=== PATIENT | female | born 2000 | race Caucasian/White ===

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

== ENCOUNTER 2019-11-10 09:57 | Inpatient (IN) | payer MEDICAID ==
[~2019-11-10] VITALS: Ht 165.1 cm; Wt 65.9 kg
--- NOTE | 2019-11-10 10:08 | NUR ---
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 SX: BRADYCARDIA, HYPOTENSION. TX INCLUDE: ZERO CHARCOAL IF PATIENT IS UNABLE TO MAINTAIN HER AIRWAY, ATROPINE PRN FOR BRADYCARDIA, FLUIDS FOR HYPOTENSION, OBSERVE FOR 6 HOURS AND ADMIT FOR PERSISTENT SX, NARCAN FOR BLUEPRINT PROCESSOR AND RESPIRATORY DEPRESSION, TACTILE STIMULATION FOR RESPIRATORY DEPRESSION. LABS TO GET: TYLENOL, ASA, KEVIN, URINE TOX SCREEN, CHEM AND LIVER PANEL, TEST AND EKG.
[2019-11-10 10:21] LABS: BASOPHILS # (AUTO) 0.1 X10'3 (0-0.2); BASOPHILS % (AUTO) 0.5 % (0-1); EOSINOPHILS % (AUTO) 0.3 % (0-6); HEMATOCRIT 39.4 % (35.0-45.0); HEMOGLOBIN 13.6 g/dl (12.0-16.0); LYMPHOCYTES # (AUTO) 2.6 X10'3 (1.1-4.8); LYMPHOCYTES % (AUTO) 22.7 % (21-51); MEAN CORPUSCULAR HEMOGLOBIN 31.4 PG (27.0-31.0); MEAN CORPUSCULAR HGB CONC 34.4 g/dL (33.0-36.5); MEAN CORPUSCULAR VOLUME 91.3 FL (78-98); MEAN PLATELET VOLUME 9.3 FL (7.4-10.4); MONOCYTES # (AUTO) 0.8 X10'3 (0-0.9); MONOCYTES % (AUTO) 6.5 % (2-12); NEUTROPHILS # (AUTO) 8.2 X10'3 (1.8-7.7); PLATELET COUNT 250 X10'3 (140-440); RED BLOOD COUNT 4.32 X10'6 (4.20-5.60); RED CELL DISTRIBUTION WIDTH 13.1 % (11.5-14.5); WHITE BLOOD COUNT 11.7 X10'3 (4.5-11.0)
--- NOTE | 2019-11-10 10:24 | NUR ---
pt took hand full of conidine around 90 or so pills
[2019-11-10 10:34] LABS: ALANINE AMINOTRANSFERASE 17 U/L (12-78); ALBUMIN 3.9 G/DL (3.4-5.0); ALBUMIN/GLOBULIN RATIO 1.1 (1.1-1.5); ALKALINE PHOSPHATASE 84 IU/L (20-180); ANION GAP 11 (8-16); ASPARTATE AMINO TRANSFERASE 16 U/L (10-37); BILIRUBIN,TOTAL 0.4 MG/DL (0.1-1.0); BLOOD UREA NITROGEN 15 MG/DL (7-18); BUN/CREATININE RATIO 16.7 (6.6-38.0); CHLORIDE 104 MMOL/L (99-107); ETHANOL < 0.010 GM/DL (0.0-0.010); GLUCOSE 151 MG/DL (70-104); MAGNESIUM 1.9 MG/DL (1.5-2.4); POTASSIUM 3.4 MMOL/L (3.5-5.1); SODIUM 140 MMOL/L (135-145); TOTAL CARBON DIOXIDE 24.7 MMOL/L (24-32); TOTAL PROTEIN 7.4 G/DL (6.4-8.2); eGFR 80 ML/MIN
[2019-11-10] MEDS ORDERED: naloxone 0.4 mg/ml inj IV PRN (10:45)
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
[2019-11-10 10:46] LABS: CLARITY,URINE CLEAR (Clear); COLOR,URINE YELLOW (Yellow); GLUCOSE, URINE NEGATIVE (Neg); KETONES,URINE NEGATIVE (Neg); LEUKOCYTE ESTERASE ,URINE NEGATIVE (Neg); NITRITES, URINE NEGATIVE (Neg); OCCULT BLOOD,URINE TRACE-INTACT (Neg); PH,URINE 5.5 (4.8-8.0); PROTEIN,URINE 100 mg/dl (Neg)
[2019-11-10 10:47] LABS: URINE HCG NEGATIVE (NEG)
[2019-11-10 10:51] LABS: UA COLLECTION TYPE STRAIGHT CATH
[2019-11-10 10:52] LABS: AMORPHOUS URATES 1+; BACTERIA,URINE FEW /HPF (Neg); MUCUS STRANDS MODERATE /LPF (Neg); RBC,URINE 0-2 /HPF (0-2); SQUAMOUS EPITHELIAL CELL,UR MANY /LPF (FEW); WBC,URINE 0-4 /HPF (0-4)
[2019-11-10 11:05] LABS: URINE AMPHETAMINE SCREEN POSITIVE (Neg); URINE BARBITUATE SCREEN NEGATIVE (Neg); URINE BENZODIAZEPINES SCREEN NEGATIVE (Neg); URINE CANNABINOID SCREEN POSITIVE (Neg); URINE COCAINE SCREEN POSITIVE (Neg); URINE METHADONE SCREEN NEGATIVE (Neg); URINE OPIATE SCREEN NEGATIVE (Neg); URINE PHENCYCLIDINE SCREEN NEGATIVE (Neg)
--- NOTE | 2019-11-10 11:09 | NUR ---
ONEAL (FATHER OF CHILD): [phone]
[2019-11-10] MEDS ORDERED: CLON-529 PO (11:40)
--- NOTE | 2019-11-10 11:52 | NUR ---
family in at bed side pt still drousy but wakes up with some stimuli
--- NOTE | 2019-11-10 12:01 | NUR ---
gasper shafer of heart rate no new orders at this time will cont to abserve
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
[2019-11-10] MEDS ORDERED: acetaminophen 650mg rectal suppository RC PRN (13:15)
[2019-11-10] MEDS ORDERED: magnesium 4gm in 100ml NS 100 ML IV PRN (13:15)
[2019-11-10] MEDS ORDERED: mag hydrox/Alum hydrox/simeth 30ml oral suspension PO PRN (13:15)
[2019-11-10] MEDS ORDERED: diphenhydrAMINE 50 mg/ml inj IV PRN (13:15)
[2019-11-10] MEDS ORDERED: diphenhydrAMINE 25mg capsule PO PRN (13:15)
[2019-11-10] MEDS ORDERED: potassium CL 10mEq/100ml bag 100 ML IV PRN ×2 (13:15)
[2019-11-10] MEDS ORDERED: potassium Cl 20 mEq SR tablet PO PRN ×2 (13:15)
[2019-11-10] MEDS ORDERED: magnesium 2GM in 50ml NS 50 ML IV PRN (13:15)
[2019-11-10] MEDS ORDERED: magnesium Cl slow-release 64mg tablet PO PRN (13:15)
[2019-11-10] MEDS ORDERED: magnesium hydroxide 30ml (MOM) UD suspension PO PRN (13:15)
[2019-11-10] MEDS ORDERED: acetaminophen 325mg tablet PO PRN ×2 (13:15)
[2019-11-10] MEDS ORDERED: ondansetron/PF 4mg/2ml inj IV PRN (13:15)
[2019-11-10] MEDS ORDERED: metoclopramide 5 mg/ml inj IV PRN (13:15)
[2019-11-10] MEDS ORDERED: BECL10.62 IH (13:31)
[2019-11-10] MEDS ORDERED: IBUP-1984 PO (13:31)
[2019-11-10 14:00] VITALS: BP 94/45
[2019-11-10] MEDS: dextrose 5%-normal saline 1,000 ML IV SCH ×2 (14:00→19:55)
--- NOTE | 2019-11-10 14:00 | NUR ---
Patient in room PCU 3011 admitted from ED. I have received report from Mg KEITA and had the opportunity to ask questions and assume patient care.
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
--- NOTE | 2019-11-10 16:00 | NUR ---
Bernarda exboyfriend/baby's father brings patient's child to hospital and reassures that baby is well kept and taken care of, will continue to monitor.
[2019-11-10 16:30] VITALS: BP 129/89
[2019-11-10 17:30] VITALS: BP 117/77
[2019-11-10 18:00] VITALS: BP 120/75
--- NOTE | 2019-11-10 18:28 | NUR ---
Problems reprioritized. Patient report given, questions answered & plan of care reviewed with Rupa KEITA.
--- NOTE | 2019-11-10 18:37 | NUR ---
Patient in room PCU 3011. I have received report from Amado KEITA and had the opportunity to ask questions and assume patient care.
[2019-11-10] MEDS: heparin, porcine 5000 units/ml vial SQ SCH (19:05)
[2019-11-10 20:00] VITALS: BP 105/83
[2019-11-10] MEDS: K and/or MAG REPLACEMENT MC SCH (20:00)
--- NOTE | 2019-11-10 21:32 | NUR ---
Patient had a potassium of 3.4. Initiated replacement per protocol via IV since pt is NPO. Patient unable ton tolerate due to burning during administration. Pt refused 3 out of 4 bags.
[2019-11-10 22:00] VITALS: BP 127/77
[2019-11-11] VITALS (13 sets, daily range): BP systolic 94–118; BP diastolic 47–94
[2019-11-11] MEDS: dextrose 5%-normal saline 1,000 ML IV SCH ×2 (00:53→07:29)
--- NOTE | 2019-11-11 05:56 | NUR ---
Student documentation: I have reviewed and agree with all interventions, assessments performed and documented by Rupa KEITA. Student Medication Administration: For this medication-pass time frame, all medication were reviewed, dispensed, administered and documented per hospital policy by Rupa KEITA. Addendum: 11/11/19 at 0558 by Yusef Grubbs RN Student documentation: I have reviewed and agree with all interventions, assessments performed and documented by Tiana DAI Student Medication Administration: For this medication-pass time frame, all medication were reviewed, dispensed, administered and documented per hospital policy by Tiana CARVER.
[2019-11-11 06:05] LABS: BASOPHILS % (AUTO) 0.3 % (0-1); EOSINOPHILS # (AUTO) 0.2 X10'3 (0-0.9); EOSINOPHILS % (AUTO) 2.9 % (0-6); HEMATOCRIT 34.7 % (35.0-45.0); HEMOGLOBIN 12.1 g/dl (12.0-16.0); LYMPHOCYTES # (AUTO) 3.6 X10'3 (1.1-4.8); LYMPHOCYTES % (AUTO) 43.1 % (21-51); MEAN CORPUSCULAR HEMOGLOBIN 32.4 PG (27.0-31.0); MEAN CORPUSCULAR HGB CONC 34.9 g/dL (33.0-36.5); MEAN CORPUSCULAR VOLUME 92.8 FL (78-98); MEAN PLATELET VOLUME 9.9 FL (7.4-10.4); MONOCYTES # (AUTO) 0.8 X10'3 (0-0.9); MONOCYTES % (AUTO) 9.7 % (2-12); NEUTROPHILS # (AUTO) 3.7 X10'3 (1.8-7.7); PLATELET COUNT 218 X10'3 (140-440); RED BLOOD COUNT 3.74 X10'6 (4.20-5.60); RED CELL DISTRIBUTION WIDTH 12.7 % (11.5-14.5); WHITE BLOOD COUNT 8.4 X10'3 (4.5-11.0)
--- NOTE | 2019-11-11 06:17 | NUR ---
Problems reprioritized. Patient report given, questions answered & plan of care reviewed with Estephania KEITA.
--- NOTE | 2019-11-11 06:25 | NUR ---
Patient in room U 3011. I have received report from BOSSMAN Benjamin and had the opportunity to ask questions and assume patient care. Patient currently resting in bed, bed locked and low, call light in reach, sitter in room, bedside monitor shows sinus lior in 40s, otherwise VSS, no acute distress, will continue to monitor. Addendum: 11/11/19 at 0643 by Estephania Ndiaye RN Report received from BOSSMAN Goode, not Cassidy
[2019-11-11 06:41] LABS: ALANINE AMINOTRANSFERASE 13 U/L (12-78); ALKALINE PHOSPHATASE 68 IU/L (20-180); ANION GAP 9 (8-16); ASPARTATE AMINO TRANSFERASE 14 U/L (10-37); BILIRUBIN,TOTAL 0.4 MG/DL (0.1-1.0); BLOOD UREA NITROGEN 11 MG/DL (7-18); BUN/CREATININE RATIO 14.7 (6.6-38.0); CALCIUM 8.3 MG/DL (8.5-10.1); CHLORIDE 111 MMOL/L (99-107); CREATININE 0.75 MG/DL (0.40-0.90); GLUCOSE 133 MG/DL (70-104); MAGNESIUM 1.9 MG/DL (1.5-2.4); PHOSPHORUS 3.6 MG/DL (2.3-4.5); POTASSIUM 3.8 MMOL/L (3.5-5.1); SODIUM 144 MMOL/L (135-145); TOTAL CARBON DIOXIDE 24.2 MMOL/L (24-32); TOTAL PROTEIN 5.9 G/DL (6.4-8.2); eGFR > 90 ML/MIN
[2019-11-11] MEDS: heparin, porcine 5000 units/ml vial SQ SCH ×2 (07:29→19:35)
[2019-11-11] MEDS: K and/or MAG REPLACEMENT MC SCH ×2 (08:00→19:28)
[2019-11-11 11:03] LABS: HEMOGLOBIN A1C 5.2 % (4.5-6.2)
[2019-11-11 11:07] LABS: ACETAMINOPHEN 2.2 UG/ML (10-30)
[2019-11-11] MEDS ORDERED: atropine 1 MG/1 ML vial IV PRN (11:30)
[2019-11-11] MEDS ORDERED: atropine 0.1mg/ml 10ml syringe IV PRN (12:00)
--- NOTE | 2019-11-11 18:17 | NUR ---
Problems reprioritized. Patient report given, questions answered & plan of care reviewed with BOSSMAN Goode.
[2019-11-12] VITALS (8 sets, daily range): BP systolic 96–135; BP diastolic 57–83
--- NOTE | 2019-11-12 03:05 | NUR ---
PAGER ID: [phone] MESSAGE: [phone] Mariana Hough: Pt is requesting something for cough
[2019-11-12] MEDS ORDERED: benzonatate 100mg capsule PO PRN (03:15)
[2019-11-12 05:27] LABS: BASOPHILS % (AUTO) 0.4 % (0-1); EOSINOPHILS # (AUTO) 0.2 X10'3 (0-0.9); HEMATOCRIT 35.1 % (35.0-45.0); HEMOGLOBIN 12.1 g/dl (12.0-16.0); LYMPHOCYTES # (AUTO) 4.3 X10'3 (1.1-4.8); LYMPHOCYTES % (AUTO) 37.3 % (21-51); MEAN CORPUSCULAR HEMOGLOBIN 32.2 PG (27.0-31.0); MEAN CORPUSCULAR HGB CONC 34.5 g/dL (33.0-36.5); MEAN CORPUSCULAR VOLUME 93.3 FL (78-98); MEAN PLATELET VOLUME 10.4 FL (7.4-10.4); MONOCYTES # (AUTO) 0.9 X10'3 (0-0.9); MONOCYTES % (AUTO) 7.4 % (2-12); NEUTROPHILS # (AUTO) 6.1 X10'3 (1.8-7.7); NEUTROPHILS % (AUTO) 52.9 % (42-75); PLATELET COUNT 228 X10'3 (140-440); RED BLOOD COUNT 3.76 X10'6 (4.20-5.60); WHITE BLOOD COUNT 11.5 X10'3 (4.5-11.0)
[2019-11-12 06:13] LABS: ALANINE AMINOTRANSFERASE 20 U/L (12-78); ALKALINE PHOSPHATASE 69 IU/L (20-180); ANION GAP 9 (8-16); ASPARTATE AMINO TRANSFERASE 16 U/L (10-37); BILIRUBIN,TOTAL 0.2 MG/DL (0.1-1.0); BLOOD UREA NITROGEN 11 MG/DL (7-18); BUN/CREATININE RATIO 12.8 (6.6-38.0); CALCIUM 8.3 MG/DL (8.5-10.1); CHLORIDE 110 MMOL/L (99-107); CREATININE 0.86 MG/DL (0.40-0.90); GLUCOSE 92 MG/DL (70-104); MAGNESIUM 1.7 MG/DL (1.5-2.4); PHOSPHORUS 3.5 MG/DL (2.3-4.5); POTASSIUM 3.7 MMOL/L (3.5-5.1); SODIUM 143 MMOL/L (135-145); TOTAL CARBON DIOXIDE 24.2 MMOL/L (24-32); TOTAL PROTEIN 5.9 G/DL (6.4-8.2); eGFR 84 ML/MIN
--- NOTE | 2019-11-12 06:24 | NUR ---
Patient in room PCU 3011. I have received report from Rupa KEITA and had the opportunity to ask questions and assume patient care. Patient sleeping and sitter at bedside
--- NOTE | 2019-11-12 06:26 | NUR ---
Problems reprioritized. Patient report given, questions answered & plan of care reviewed with Lizzie KEITA.
[2019-11-12] MEDS: K and/or MAG REPLACEMENT MC SCH ×2 (08:00→19:44)
[2019-11-12] MEDS: heparin, porcine 5000 units/ml vial SQ SCH ×2 (08:00→19:43)
--- NOTE | 2019-11-12 11:00 | NUR ---
Patient refused vitals and yelled "I want to be left alone!"
--- NOTE | 2019-11-12 11:15 | NUR ---
Poison control called to check on patient. Updated them that she was alert and oriented, her heart rate remained stable, and that the doctor said he would be medically clearing her to be evaluated by [facility].
--- NOTE | 2019-11-12 11:17 | NUR ---
Per protocol from suicidal attempt, cell phone needed to be removed from patient's room. Primary RN spoke to patient, followed by medical social consultant. Patient was upset and angry, but was compliant. Stated she is worried about her child, to which primary RN and medical social consultant educated again that the patient cannot help her child if she is not looking after herself too and that her family is always welcome to call the hospital to get updates. MD also went to see patient and will D/C orders for tele and IV as patient is refusing them.
--- NOTE | 2019-11-12 11:20 | NUR ---
PIV removed. Catheter intact.
--- NOTE | 2019-11-12 11:30 | NUR ---
Lab called and reported that patient had positive MRSA nasal swab. notified
--- NOTE | 2019-11-12 11:52 | NUR ---
patient sitting in bathroom, shut door and said that she wants to be "left the fuck alone." Educated patient that we will leave her alone to rest, but that the sitter will be staying in room the whole time, as per the protocol for her safety.
--- NOTE | 2019-11-12 12:00 | NUR ---
communication instructor reported to me that patient is still having current ideation. Patient stated to student "you know what is going to happen to me once I get out of here." When student inquired as to what she meant, patient stated "You know exactly what I mean." Patient stated that her mentation and plans have not changed since she has been in the hospital. I made charge nurse, Dr Stephenson, and neonatal social worker aware of patients statements. Yani from [employer] stated that she will provide that in her information packet to [facility]
--- NOTE | 2019-11-12 12:01 | NUR ---
Patient's parents notified that patient no longer has cell phone, and that the can call the hospital at anytime
--- NOTE | 2019-11-12 12:03 | NUR ---
ER sent up itemized list for rest of patient's belongings that were in room. List completed by equal opportunity representative and patient sitter, and signed by both with patient present, as patient is refusing to sign paperwork. Patient continues to be upset that belongings were not taken sooner, education continuously provided that per our protocol, belongings should have been taken sooner but were not. Pt continues to be upset about cell phone and states that I took her phone while she was in the shower. However, phone was not removed until patient was aware. I had placed cell phone in bag and sat in room with sitter to wait until she was out of shower, then then had explained to patient that I had to take her cell phone, why the cell phone needed to be removed and that we would keep it in our hospital safe.
--- NOTE | 2019-11-12 13:48 | NUR ---
Sitter at bedside, and RN rounding frequently. Patient is currently laying down in bed resting
--- NOTE | 2019-11-12 15:00 | NUR ---
Patient refused vital signs
--- NOTE | 2019-11-12 15:32 | NUR ---
I was asked to come into room by sitter, as patient was getting agitated again and cussing at sitter. When I came into room and asked patient had questions for me, she angrily said "I want my doctor. I want mental health. How long is it going to take. I want my shit." I educated patient again that it is not in my control when [facility] comes to see her, nor is it in Dr Stephenson's control. I acknowledged that the situating is frustrating for patient, and that I understood that. Pt stated "You don't know anything about what I am going through." I responded that she was correct that I have not been in her situation, and that we are all just trying to help her. Pt said "you are all doing a shit job and took my things without my consent" to which I informed her again that part of the suicide watch protocol is to remove all of patient's belongings. Asked patient again to not cuss at myself or at the sitter, and she rolled her eyes and said "whatever." Informed charge nurse.
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
--- NOTE | 2019-11-12 17:48 | NUR ---
Paged PAGER ID: [phone] MESSAGE: Lizzie SIMMS. RE Clarita Hough 3011. Patient is requesting an order for a nicotine patch
--- NOTE | 2019-11-12 18:29 | NUR ---
Problems reprioritized. Patient report given, questions answered & plan of care reviewed with Rupa KEITA.
--- NOTE | 2019-11-12 18:29 | NUR ---
Patient in room PCU 3011. I have received report from Lizzie KEITA and had the opportunity to ask questions and assume patient care.
[2019-11-12] MEDS ORDERED: nicotine 21mg patch - 24 hr TD SCH (20:00)
--- NOTE | 2019-11-12 20:09 | NUR ---
PAGER ID: [phone] MESSAGE: Mariana Hough [phone]: Patient has a new order for a nicotine patch. Placed on patient and she had an localized allergic reaction to the adhesive. Is there anything else she can get for her cravings? -Rupa KEITA [phone]
[2019-11-12] MEDS ORDERED: nicotine prolacrilex 4mg gum BC PRN (20:20)
--- NOTE | 2019-11-12 20:23 | NUR ---
PAGER ID: [phone] MESSAGE: Mariana Hough 3010: [facility] has evaluated the patient. He will not be writing a 5150 on her. Pt has been medically cleared. Do you want to DC or wait until day shift? -Rupa KEITA [phone]
[2019-11-12] MEDS ORDERED: nicotine prolacrilex 2mg gum BC PRN (20:32)
--- NOTE | 2019-11-13 04:20 | NUR ---
Patient refused 0200 vital signs.
--- NOTE | 2019-11-13 06:09 | NUR ---
Problems reprioritized. Patient report given, questions answered & plan of care reviewed with Lizzie KEITA.
--- NOTE | 2019-11-13 06:13 | NUR ---
Patient in room U 3011. I have received report from Rupa KEITA and had the opportunity to ask questions and assume patient care. Patient sleeping in bed.
[2019-11-13 07:00] VITALS: BP 132/86
[2019-11-13] MEDS: K and/or MAG REPLACEMENT MC SCH (08:00)
[2019-11-13] MEDS: heparin, porcine 5000 units/ml vial SQ SCH (08:00)
--- NOTE | 2019-11-13 09:31 | NUR ---
Jimi ZUÑIGA PAGER ID: [phone] MESSAGE: Lizzie miner [phone]. RE Clarita Hough 3011. FYI in case you were not told that county visited patient last night and did not write a 5150 and patient no longer has sitter and belongings were returned to her.
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
== END 2019-11-13 11:22 | disposition home or self-care (01) | DRG 812 ==
LOC: ER 09:57 → PCU 3S 13:15 → CMPBEDREQ 11-12 19:52
PROVIDERS: ADMIT Family Medicine; ATTEND Family Medicine
DX: T46.5X2A Poisoning by other antihypertensive drugs, intentional self-harm, initial encounter (principal); I95.9 Hypotension, unspecified; E11.9 Type 2 diabetes mellitus without complications; F12.10 Cannabis abuse, uncomplicated; F14.10 Cocaine abuse, uncomplicated; R00.1 Bradycardia, unspecified; F15.10 Other stimulant abuse, uncomplicated; F17.200 Nicotine dependence, unspecified, uncomplicated; Z82.49 Family history of ischemic heart disease and other diseases of the circulatory system; Z83.3 Family history of diabetes mellitus; Z87.820 Personal history of traumatic brain injury; Z91.19 Patient's noncompliance with other medical treatment and regimen; Z71.51 Drug abuse counseling and surveillance of drug abuser; Y92.89 Other specified places as the place of occurrence of the external cause; Z71.6 Tobacco abuse counseling
CPT/HCPCS: 36415; 80053; 80305; 80320; 80329; 81001; 81025; 82948; 83036; 83735; 84100; 84484; 85025; 87081; 92508; 92616; 93005; 99291; G0378; J1644; J3480; J7042

== ENCOUNTER 2019-12-23 13:23 | Emergency (ER) | payer MEDICAID ==
[~2019-12-23] VITALS: Ht 160 cm; Wt 62.5 kg
[~2019-12-23 13:23] MED LIST changes: -FLUO15CR TOP; -IBUP-1572 PO; +IBUP-1984 PO; -NO HOME MEDS; -ONDA4TAB6 PO
[2019-12-23 13:25] VITALS: BP 118/74
== END 2019-12-23 14:15 | disposition home or self-care (01) ==
LOC: ER 13:24
DX: S63.501A Unspecified sprain of right wrist, initial encounter (principal); F12.90 Cannabis use, unspecified, uncomplicated; Z79.899 Other long term (current) drug therapy; X50.9XXA Other and unspecified overexertion or strenuous movements or postures, initial encounter; Y93.72 Activity, wrestling; Y92.89 Other specified places as the place of occurrence of the external cause; Y99.8 Other external cause status
CPT/HCPCS: 29125; 73110; 99283

== ENCOUNTER 2024-02-20 12:18 | Emergency (ER) | payer MEDICAID ==
[~2024-02-20] VITALS: Ht 167.6 cm; Wt 74.5 kg
[2024-02-20 12:22] VITALS: BP 153/74; PULSE 86; RESP 18; TEMP 97.8; O2SAT 98
== END 2024-02-20 13:48 | disposition left against medical advice (07) ==
LOC: ER 12:19
DX: R10.2 Pelvic and perineal pain (principal); R10.9 Unspecified abdominal pain; Z53.21 Procedure and treatment not carried out due to patient leaving prior to being seen by health care provider